=== PATIENT | female | born 1970 | race Caucasian/White ===

== ENCOUNTER 2016-05-30 15:06 | Emergency (ER) | payer BC ==
[~2016-05-30 15:06] MED LIST: LOPRESSOR DPS100 MG PO; ZESTRIL DPS10 MG PO
--- NOTE | 2016-06-29 21:14 | ER ---
ADMIT: 05/30/2016 RM/LOC: ER [facility] MR#: [id number] [address] [id number] [place] [id number] [id number] Emergency Room Report SEX: F AGE: 45 : 1970 DATE: 05/30/2016 SUBJECTIVE: A 45-year-old female with sudden onset of back and chest pain while getting ready for work. She was walking to the car when sudden onset of severe pain, 10/10 sharp squeezing in the back going through to the chest between her scapula. She has had 2 episodes similar to this in the past, was told it was musculoskeletal. See T-sheet for remainder of the history and physical. Chest x-ray is unremarkable. EKG is normal. Lab work was normal. She was given 25 mcg of fentanyl IM with rapid resolution of the pain, and remained asymptomatic throughout the rest of her stay in the Emergency Department. Vital signs were always within the normal parameters and subsequently discharged. DIAGNOSIS: Acute back pain. RECOMMENDATIONS: She is instructed to follow up with her doctor tomorrow. Sigifredo Kaplan MD/ erinn JOB #: [id number] CC: Sigifredo Kaplan MD, Attending Physician Oscar Blanc MD, Family Physician
== END 2016-05-30 16:20 | disposition home or self-care (01) ==
LOC: ER 15:06
DX: S29.012A Strain of muscle and tendon of back wall of thorax, initial encounter (principal); I10 Essential (primary) hypertension; Z79.899 Other long term (current) drug therapy; X58.XXXA Exposure to other specified factors, initial encounter